=== PATIENT | female | born 1995 | race American Indian/Alaskan Native ===

== ENCOUNTER 2016-04-04 15:53 | Emergency (ER) | payer MEDICAID, OTHER ==
--- NOTE | 2016-04-04 19:26 | Emergency Department Report ---
ED Female HPI - General Chief complaint: Urogenital-Female Stated complaint: VAGINAL DISCOMFORT Time Seen by Provider: 04/04/16 19:25 Source: patient Mode of arrival: Ambulatory Limitations: No Limitations - History of Present Illness Initial comments: 20-year-old female past medical history none presents with complaint of mild foul smelling urine for 3 days, tiny amount of vaginal discharge. Very minor dysuria. Denies any fever chills nausea vomiting no abdominal pain no flank pain. Denies any chest pain no palpitations no shortness of breath. Denies any hematuria. Patient states she just finished her last menstrual period Complaint: dysuria Worsens with: urination Are you Now?: No Last Menstrual Period: 03/30/16 EDC: 01/04/17 Associated Symptoms: dysuria - Related Data Previous Rx's Medication Instructions Recorded Last Taken Type Vit W-Ca,Fe,FA(<1 mg) 1 each PO DAILY #90 tablet 04/11/15 05/22/15 Rx [ Vitamins] Docusate Sodium [Colace] 100 mg PO BID PRN #60 capsule 11/05/15 Unknown Rx Ferrous Sulfate [Feosol 325 MG tab] 325 mg PO TID #120 tablet 11/05/15 Unknown Rx Ibuprofen [Motrin 600 MG tab] 600 mg PO Q6HR PRN #30 tablet 11/05/15 Unknown Rx Nitrofurantoin [place]/M-Cryst 100 mg PO Q12HR #14 capsule 04/04/16 Unknown Rx [Macrobid CAP] metroNIDAZOLE [Flagyl TAB] 500 mg PO Q12HR #14 tab 04/04/16 Unknown Rx Allergies Allergy/AdvReac Type Severity Reaction Status Date / Time No Known Allergies Allergy Verified 04/10/15 18:31 ED Review of Systems ROS: Stated complaint: VAGINAL DISCOMFORT Other details as noted in HPI Constitutional: denies: chills, fever Eyes: denies: eye pain, eye discharge, vision change ENT: denies: ear pain, throat pain Respiratory: denies: cough, shortness of breath, wheezing Cardiovascular: denies: chest pain, palpitations Endocrine: no symptoms reported Gastrointestinal: denies: abdominal pain, nausea, diarrhea Genitourinary: denies: urgency, dysuria, discharge Musculoskeletal: denies: back pain, joint swelling, arthralgia Skin: denies: rash, lesions Neurological: denies: headache, weakness, paresthesias Psychiatric: denies: anxiety, depression Hematological/Lymphatic: denies: easy bleeding, easy bruising ED Past Medical Hx - Past Medical History Previous Medical History?: Yes Hx Hypertension: No Hx Congestive Heart Failure: No Hx Diabetes: No Hx Deep Vein Thrombosis: No Hx Renal Disease: No Hx Sickle Cell Disease: No Hx Seizures: No Hx Psychiatric Treatment: Yes (anxiety) Hx Asthma: No Hx COPD: No Hx HIV: No - Surgical History Past Surgical History?: Yes Additional Surgical History: eye surgery-BILATERAL - Social History Smoking Status: Never Smoker Substance Use Type: None - Medications Home Medications: Home Medications Medication Instructions Recorded Confirmed Last Taken Type Vit W-Ca,Fe,FA(<1 mg) 1 each PO DAILY #90 tablet 04/11/15 11/05/15 Rx [ Vitamins] Docusate Sodium [Colace] 100 mg PO BID PRN #60 capsule 11/05/15 Unknown Rx Ferrous Sulfate [Feosol 325 MG tab] 325 mg PO TID #120 tablet 11/05/15 Unknown Rx Ibuprofen [Motrin 600 MG tab] 600 mg PO Q6HR PRN #30 tablet 11/05/15 Unknown Rx Nitrofurantoin [place]/M-Cryst 100 mg PO Q12HR #14 capsule 04/04/16 Unknown Rx [Macrobid CAP] metroNIDAZOLE [Flagyl TAB] 500 mg PO Q12HR #14 tab 04/04/16 Unknown Rx ED Physical Exam - General Limitations: No Limitations General appearance: alert, in no apparent distress - Head Head exam: Present: atraumatic, normocephalic - Eye Eye exam: Present: normal appearance, PERRL, EOMI - ENT ENT exam: Present: mucous membranes moist - Neck Neck exam: Present: normal inspection - Respiratory Respiratory exam: Present: normal lung sounds bilaterally. Absent: respiratory distress - Cardiovascular Cardiovascular Exam: Present: regular rate, normal rhythm. Absent: systolic murmur, diastolic murmur, rubs, gallop - GI/Abdominal GI/Abdominal exam: Present: soft, normal bowel sounds - Extremities Exam Extremities exam: Present: normal inspection - Back Exam Back exam: Present: normal inspection - Neurological Exam Neurological exam: Present: alert, oriented X3, CN II-XII intact, normal gait - Psychiatric Psychiatric exam: Present: normal affect, normal mood - Skin Skin exam: Present: warm, dry, intact, normal color. Absent: rash ED Course Vital Signs 04/04/16 16:01 Temperature 98.6 F Pulse Rate 105 H Respiratory 18 Rate Blood Pressure 151/79 O2 Sat by Pulse 100 Oximetry ED Medical Decision Making - Medical Decision Making A/P: Dysuria, possible BV 1-Macrobid twice a day 7 days. Patient has no signs of pyelonephritis no flank pain no nausea no vomiting no abdominal pain. Patient is not currently breast-feeding. 2-metronidazole twice a day 7 days to cover empirically for BV, wet prep and GC chlamydia sent. Patient has no clinical signs of PID 3-patient advised to return to the ED if symptoms worsen 4-PRIMARY care doctor follow-up Critical care attestation.: If time is entered above; I have spent that time in minutes in the direct care of this critically ill patient, excluding procedure time. ED Disposition Clinical Impression: Dysuria Disposition: DISCHARGED TO HOME OR SELFCARE Is pt being admited?: No Does the pt Need Aspirin: No Condition: Stable Instructions: Bacterial Vaginosis (ED), Urinary Tract Infection in Women (ED), Dysuria (ED) Prescriptions: metroNIDAZOLE [Flagyl TAB] 500 mg PO Q12HR #14 tab Nitrofurantoin [place]/M-Cryst [Macrobid CAP] 100 mg PO Q12HR #14 capsule Referrals: PRIMARY CAREMD [Primary Care Provider] - 3-5 Days AJIT VEGA MD [Staff Physician] - 3-5 Days [facility] [Provider Group] - 3-5 Days Forms: Work/School Release Form(ED) Time of Disposition: 20:15
[2016-04-04 20:08] LABS: Bacteria,Urine 1+ /HPF (Negative); Bilirubin,Urine NEG (Negative); Blood,Urine NEG (Negative); Ketones,Urine NEG (Negative); Leukocyte Esterase,Urine LG (Negative); Mucus,Urine FEW /HPF; Nitrite,Urine NEG (Negative); Protein,Urine <15 mg/dL mg/dL (Negative); Urobilinogen,Urine < 2.0 mg/dL (<2.0)
[2016-04-04 20:52] VITALS: BP 145/79
== END 2016-04-04 21:07 | disposition home or self-care (01) ==
LOC: ED 15:53
DX: R30.0 Dysuria (principal)
CPT/HCPCS: 81001; 81025; 87086; 87210; 87591; 99282

== ENCOUNTER 2016-04-06 18:50 | Emergency (ER) | payer OTHER ==
[2016-04-06 23:17] VITALS: BP 140/86
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
[2016-04-07] MEDS: TYLENOL #3 PO ONE (01:21)
== END 2016-04-07 01:59 | disposition home or self-care (01) ==
LOC: ED 18:50
DX: M54.2 Cervicalgia (principal); M54.6 Pain in thoracic spine; F41.9 Anxiety disorder, unspecified
CPT/HCPCS: 81025; 99282

== ENCOUNTER 2016-07-12 22:37 | Emergency (ER) | payer OTHER ==
[2016-07-13 00:49] LABS: Basophils % (Auto) 0.2 % (0.0-1.8); Eosinophils % (Auto) 3.5 % (0.0-4.3); Mean Corpuscular HGB Conc 29 % (30-34); Platelet Count 284 K/mm3 (140-440); Red Blood Count 4.49 M/mm3 (3.65-5.03); Red Cell Distribution Width 19.1 % (13.2-15.2); White Blood Count 8.8 K/mm3 (4.5-11.0)
[2016-07-13 00:52] LABS: Hemoglobin 8.7 gm/dl (10.1-14.3)
[2016-07-13 00:53] LABS: Hematocrit 30.4 % (30.3-42.9); Mean Corpuscular Hemoglobin 19 pg (28-32); Mean Corpuscular Volume 68 fl (79-97)
[2016-07-13 01:11] LABS: Alanine Aminotransferase 16 units/L (7-56); Albumin 4.4 g/dL (3.9-5); Albumin/Globulin Ratio 1.3 %; Alkaline Phosphatase 60 units/L (35-129); Anion Gap 19 mmol/L; BUN/Creatinine Ratio 11.25; Blood Urea Nitrogen 9 mg/dL (7-17); Carbon Dioxide 18 mmol/L (22-30); Chloride 105.2 mmol/L (98-107); Glucose 79 mg/dL (65-100); Lipase 58 units/L (13-60); Potassium 4.2 mmol/L (3.6-5.0); Sodium 138 mmol/L (137-145); Total Protein 7.7 g/dL (6.3-8.2)
[2016-07-13 02:16] LABS: Bilirubin,Urine NEG (Negative); Blood,Urine LG (Negative); Ketones,Urine NEG (Negative); Leukocyte Esterase,Urine NEG (Negative); Mucus,Urine 3+ /HPF; Nitrite,Urine NEG (Negative); Urobilinogen,Urine < 2.0 mg/dL (<2.0)
[2016-07-13 02:23] LABS: RBC,Urine > 182.0 /HPF (0.0-6.0)
[2016-07-13] MEDS ORDERED: ZOFRAN ODT PO ONE (10:49)
--- NOTE | 2016-07-13 10:57 | Emergency Department Report ---
ED Abdominal Pain HPI - General Chief Complaint: Abdominal Pain Stated Complaint: EMESIS/ABD PAIN Time Seen by Provider: 07/13/16 10:33 Source: patient, RN notes reviewed, old records reviewed Mode of arrival: Ambulatory Limitations: No Limitations - History of Present Illness Initial Comments: 20-year-old female presents to the emergency department complaining of upper abdominal pain. Patient describes feeling bloated. Symptoms have been present for the past 3 days. She denies radiation of pain. She reports nausea and vomiting with associated diarrhea. She denies seeing any blood. She also denies vaginal discharge. There has been no fever. She is currently on her menstrual cycle. There are no other complaints. MD Complaint: abdominal pain -: Gradual, days(s) (3) Location: epigastric Radiation: none Migration to: no migration Severity: moderate Severity scale (0 -10): 7 Quality: fullness (bloated) Consistency: constant Improves With: nothing Worsens With: nothing Associated Symptoms: nausea, vomiting, diarrhea - Related Data Previous Rx's Medication Instructions Recorded Last Taken Type Ferrous Sulfate [Feosol 325 MG tab] 325 mg PO TID #120 tablet 11/05/15 Unknown Rx Famotidine [Pepcid] 20 mg PO BID #30 tablet 07/13/16 Unknown Rx Promethazine [Phenergan TAB] 25 mg PO Q6HR PRN #20 tab 07/13/16 Unknown Rx Allergies Allergy/AdvReac Type Severity Reaction Status Date / Time No Known Allergies Allergy Verified 04/10/15 18:31 ED Review of Systems ROS: Stated complaint: EMESIS/ABD PAIN Other details as noted in HPI Comment: All other systems reviewed and negative Gastrointestinal: abdominal pain, nausea, vomiting, diarrhea ED Past Medical Hx - Past Medical History Previous Medical History?: Yes Hx Hypertension: No Hx Congestive Heart Failure: No Hx Diabetes: No Hx Deep Vein Thrombosis: No Hx Renal Disease: No Hx Sickle Cell Disease: No Hx Seizures: No Hx Psychiatric Treatment: Yes (anxiety) Hx Asthma: No Hx COPD: No Hx HIV: No - Surgical History Past Surgical History?: Yes Additional Surgical History: eye surgery-BILATERAL - Family History Family history: no significant - Social History Smoking Status: Current Every Day Smoker Substance Use Type: Alcohol - Medications Home Medications: Home Medications Medication Instructions Recorded Confirmed Last Taken Type Ferrous Sulfate [Feosol 325 MG tab] 325 mg PO TID #120 tablet 11/05/15 Unknown Rx Famotidine [Pepcid] 20 mg PO BID #30 tablet 07/13/16 Unknown Rx Promethazine [Phenergan TAB] 25 mg PO Q6HR PRN #20 tab 07/13/16 Unknown Rx ED Physical Exam - General Limitations: No Limitations General appearance: alert, in no apparent distress - Head Head exam: Present: atraumatic, normocephalic - Eye Eye exam: Present: normal appearance, PERRL, EOMI - ENT ENT exam: Present: normal exam, normal orophraynx, mucous membranes moist - Neck Neck exam: Present: normal inspection, full ROM. Absent: tenderness - Respiratory Respiratory exam: Present: normal lung sounds bilaterally. Absent: respiratory distress - Cardiovascular Cardiovascular Exam: Present: regular rate, normal rhythm, normal heart sounds - GI/Abdominal GI/Abdominal exam: Present: soft, tenderness (mild epigastric tenderness to palpation), normal bowel sounds. Absent: distended, guarding, rebound - Extremities Exam Extremities exam: Present: normal inspection, full ROM. Absent: tenderness - Back Exam Back exam: Present: normal inspection, full ROM. Absent: tenderness - Neurological Exam Neurological exam: Present: alert, oriented X3. Absent: motor sensory deficit - Skin Skin exam: Present: warm, dry, intact ED Course Vital Signs 07/13/16 07/13/16 07/13/16 00:32 02:49 08:13 Temperature 98.7 F 98.6 F 98.3 F Pulse Rate 98 H 81 72 Respiratory 18 18 18 Rate Blood Pressure 131/83 133/85 116/77 Blood Pressure [Left] O2 Sat by Pulse 98 100 100 Oximetry 07/13/16 07/13/16 07/13/16 08:36 08:50 09:00 Temperature 98.2 F Pulse Rate 77 Respiratory 16 16 Rate Blood Pressure 99/60 Blood Pressure 96/61 [Left] O2 Sat by Pulse 100 99 100 Oximetry 07/13/16 07/13/16 07/13/16 09:10 09:20 09:30 Temperature Pulse Rate Respiratory Rate Blood Pressure 99/60 99/60 99/60 Blood Pressure [Left] O2 Sat by Pulse 99 100 100 Oximetry 07/13/16 09:40 Temperature Pulse Rate Respiratory Rate Blood Pressure 99/60 Blood Pressure [Left] O2 Sat by Pulse 100 Oximetry ED Medical Decision Making - Lab Data Result diagrams: 07/13/16 00:40 07/13/16 00:40 - Medical Decision Making Lab results reviewed and discussed with the patient. Patient will be discharged home to follow up with her primary care physician. - Differential Diagnosis gastroenteritis, PUD, gastritis, pancreatitis Critical care attestation.: If time is entered above; I have spent that time in minutes in the direct care of this critically ill patient, excluding procedure time. ED Disposition Clinical Impression: Gastroenteritis Disposition: DISCHARGED TO HOME OR SELFCARE Is pt being admited?: No Condition: Stable Instructions: Abdominal Pain (ED) Prescriptions: Famotidine [Pepcid] 20 mg PO BID #30 tablet Promethazine [Phenergan TAB] 25 mg PO Q6HR PRN #20 tab PRN Reason: Nausea Referrals: PRIMARY CARE, [Primary Care Provider] - 3-5 Days Time of Disposition: 10:58
[2016-07-13 11:29] VITALS: BP 106/59
== END 2016-07-13 11:30 | disposition home or self-care (01) ==
LOC: ED 22:37
DX: K52.9 Noninfective gastroenteritis and colitis, unspecified (principal); F41.9 Anxiety disorder, unspecified; F17.200 Nicotine dependence, unspecified, uncomplicated
CPT/HCPCS: 36415; 80053; 81001; 81025; 83690; 85025; 99283

== ENCOUNTER 2017-10-19 20:20 | Emergency (ER) | payer SELFPAY ==
[2017-10-19 20:39] VITALS: BP 113/65
[2017-10-19 21:26] LABS: Bacteria,Urine 1+ /HPF (Negative); Bilirubin,Urine NEG (Negative); Blood,Urine NEG (Negative); Color,Urine Straw (Yellow); Protein,Urine <15 mg/dL mg/dL (Negative); Urobilinogen,Urine < 2.0 mg/dL (<2.0)
[2017-10-19 21:27] LABS: HCG Qualitative,Urine Negative (Negative)
[2017-10-19] MEDS ORDERED: ZOFRAN ODT PO ONE (22:22)
[2017-10-19 22:24] LABS: Basophils # (Auto) 0.1 K/mm3 (0.0-0.1); Basophils % (Auto) 1.3 % (0.0-1.8); Eosinophils # (Auto) 0.1 K/mm3 (0.0-0.4); Eosinophils % (Auto) 1.7 % (0.0-4.3); Hematocrit 29.7 % (30.3-42.9); Hemoglobin 8.6 gm/dl (10.1-14.3); Lymphocytes # (Auto) 1.8 K/mm3 (1.2-5.4); Lymphocytes % (Auto) 25.4 % (13.4-35.0); Mean Corpuscular HGB Conc 29 % (30-34); Mean Corpuscular Hemoglobin 20 pg (28-32); Mean Corpuscular Volume 71 fl (79-97); Monocytes # (Auto) 0.8 K/mm3 (0.0-0.8); Monocytes % (Auto) 11.7 % (0.0-7.3); Platelet Count 444 K/mm3 (140-440); Red Cell Distribution Width 18.8 % (13.2-15.2)
[2017-10-19 22:45] LABS: Alanine Aminotransferase 23 units/L (7-56); Albumin 4.4 g/dL (3.9-5); BUN/Creatinine Ratio 7; Blood Urea Nitrogen 6 mg/dL (7-17); Calcium 9.3 mg/dL (8.4-10.2); Hemolysis Index 2; Lipase 73 units/L (13-60)
--- NOTE | 2017-10-19 23:40 | Emergency Department Report ---
ED General Adult HPI - General Chief complaint: Nausea/Vomiting/Diarrhea Stated complaint: NAUSEA AND VOMITING Time Seen by Provider: 10/19/17 21:41 Source: patient Mode of arrival: Ambulatory Limitations: No Limitations - History of Present Illness Initial comments: 22-year-old -[place] female presents to the emergency room for vomiting and pressure to her lower abdomen onset today. Patient also admits to whitish vaginal discharge onset 2 days ago. Patient reports that she vomited approximately 10 times today. Last vomit one hour prior to me seeing her. She denies any nausea at this time. She reports any time she eats or drinks something she vomits. Patient also reports pelvic pressure denies any dysuria denies any vaginal bleeding and missed his vaginal discharge. Patient is sexually active one partner in the last 6 months this unprotected. 2 para 3. Her last menstrual period was 10/05/2017 which is normal to her. She denies any dysuria. Patient reports a past medical history of eye surgery. Currently takes no medications on a daily basis and has no known drug allergies. Location: pelvis Quality: other (pressure) Improves with: none Associated Symptoms: nausea/vomiting Treatments Prior to Arrival: none - Related Data Previous Rx's Medication Instructions Recorded Last Taken Type Ferrous Sulfate [Feosol 325 MG tab] 325 mg PO TID #120 tablet 11/05/15 Unknown Rx Famotidine [Pepcid] 20 mg PO BID #30 tablet 07/13/16 Unknown Rx Promethazine [Phenergan TAB] 25 mg PO Q6HR PRN #10 tab 10/20/17 Unknown Rx Allergies Allergy/AdvReac Type Severity Reaction Status Date / Time No Known Allergies Allergy Verified 04/10/15 18:31 ED Review of Systems ROS: Stated complaint: NAUSEA AND VOMITING Other details as noted in HPI Gastrointestinal: abdominal pain, vomiting Genitourinary: other (pelvic pressure) ED Past Medical Hx - Past Medical History Hx Hypertension: No Hx Congestive Heart Failure: No Hx Diabetes: No Hx Deep Vein Thrombosis: No Hx Renal Disease: No Hx Sickle Cell Disease: No Hx Seizures: No Hx Psychiatric Treatment: Yes (anxiety) Hx Asthma: No Hx COPD: No Hx HIV: No - Surgical History Additional Surgical History: eye surgery-BILATERAL - Social History Smoking Status: Never Smoker Substance Use Type: Alcohol, Marijuana - Medications Home Medications: Home Medications Medication Instructions Recorded Confirmed Last Taken Type Ferrous Sulfate [Feosol 325 MG tab] 325 mg PO TID #120 tablet 11/05/15 Unknown Rx Famotidine [Pepcid] 20 mg PO BID #30 tablet 07/13/16 Unknown Rx Promethazine [Phenergan TAB] 25 mg PO Q6HR PRN #10 tab 10/20/17 Unknown Rx ED Physical Exam - General Limitations: No Limitations General appearance: alert, in no apparent distress - Head Head exam: Present: atraumatic, normocephalic - Eye Eye exam: Present: EOMI - ENT ENT exam: Present: mucous membranes moist - Neck Neck exam: Present: full ROM. Absent: lymphadenopathy - Respiratory Respiratory exam: Present: normal lung sounds bilaterally. Absent: respiratory distress - Cardiovascular Cardiovascular Exam: Present: regular rate, normal rhythm. Absent: systolic murmur, diastolic murmur, rubs, gallop - GI/Abdominal GI/Abdominal exam: Present: soft, other (pelvic pressure with palpation). Absent: distended, tenderness - External exam: Present: normal external exam Speculum exam: Present: normal speculum exam Bi-manual exam: Present: normal bi-manual exam. Absent: cervical motion tendernes, adnexal tenderness, uterine enlargement, uterine tenderness - Extremities Exam Extremities exam: Present: full ROM - Neurological Exam Neurological exam: Present: alert, oriented X3 - Psychiatric Psychiatric exam: Present: normal affect, normal mood - Skin Skin exam: Present: warm, dry, intact, normal color. Absent: rash ED Course Vital Signs 10/19/17 10/19/17 20:32 20:33 Temperature 99.3 F 99.3 F Pulse Rate 75 78 Respiratory 12 12 Rate Blood Pressure 113/65 113/65 O2 Sat by Pulse 99 99 Oximetry ED Medical Decision Making - Lab Data Result diagrams: 10/19/17 22:06 10/19/17 22:06 - Medical Decision Making Patient has been evaluated by this provider fast track. Zofran 8 mg ODT for vomiting. By mouth trial challenge CBC CMP, wet prep and urinalysis GC chlamydia, hCG urine Wet prep came back Will discharge patient on Phenergan for nausea and vomiting Discussed with patient increase her fluid intake and advance her diet as tolerated. If symptoms persist or gets worse to follow up with [facility]. Critical care attestation.: If time is entered above; I have spent that time in minutes in the direct care of this critically ill patient, excluding procedure time. ED Disposition Clinical Impression: Nausea & vomiting Qualifiers: Vomiting type: unspecified Vomiting Intractability: intractable Qualified Code( s): R11.2 - Nausea with vomiting, unspecified Disposition: DC-01 TO HOME OR SELFCARE Is pt being admited?: No Does the pt Need Aspirin: No Condition: Stable Instructions: Gastritis (ED) Additional Instructions: Please take anti-nausea and vomiting medication. Please increase fluid intake and advance diet as tolerated. If her symptoms persist or gets worse please follow-up with [facility]. Prescriptions: Promethazine [Phenergan TAB] 25 mg PO Q6HR PRN #10 tab PRN Reason: Nausea Referrals: PRIMARY CARE, [Primary Care Provider] - 3-5 Days [facility] [Provider Group] - 3-5 Days Forms: Work/School Release Form(ED)
== END 2017-10-20 01:30 | disposition home or self-care (01) ==
LOC: ED 20:20
DX: R11.2 Nausea with vomiting, unspecified (principal); F41.9 Anxiety disorder, unspecified; Z79.899 Other long term (current) drug therapy
CPT/HCPCS: 36415; 80053; 81001; 81025; 83690; 85025; 87210; 87591; 99284; Q0162

== ENCOUNTER 2020-01-08 21:03 | Emergency (ER) | payer SELFPAY ==
[2020-01-09 00:08] LABS: Basophils % (Auto) 0.4 % (0.0-1.8); Eosinophils # (Auto) 0.1 K/mm3 (0.0-0.4); Eosinophils % (Auto) 1.5 % (0.0-4.3); Hematocrit 31.8 % (30.3-42.9); Hemoglobin 10.5 gm/dl (10.1-14.3); Lymphocytes # (Auto) 2.2 K/mm3 (1.2-5.4); Lymphocytes % (Auto) 28.1 % (13.4-35.0); Mean Corpuscular HGB Conc 33 % (30-34); Mean Corpuscular Volume 81 fl (79-97); Monocytes # (Auto) 0.7 K/mm3 (0.0-0.8); Monocytes % (Auto) 8.8 % (0.0-7.3); Platelet Count 298 K/mm3 (140-440); Red Blood Count 3.93 M/mm3 (3.65-5.03); Red Cell Distribution Width 18.7 % (13.2-15.2)
[2020-01-09 00:36] VITALS: BP 113/75
[2020-01-09 02:54] LABS: Bacteria,Urine 1+ /HPF (Negative); Bilirubin,Urine NEG (Negative); Blood,Urine NEG (Negative); Color,Urine Yellow (Yellow); Hyaline Casts,Urine 1 /LPF; Mucus,Urine 3+ /HPF; Protein,Urine <15 mg/dL mg/dL (Negative)
[2020-01-09] MEDS ORDERED: ACETAMINOPHEN 500 MG TAB PO ONE (04:55)
--- NOTE | 2020-01-09 05:12 | Ultrasound Report ---
ULTRASOUND OBSTETRIC INDICATION / CLINICAL INFORMATION: Vaginal bleeding - 16 weeks gestation. Clinical Gestational Age (GA) in weeks, days: 15 weeks 5 days TECHNIQUE: Transabdominal. COMPARISON: None available. FINDINGS: There is a single intrauterine . Biparietal Diameter = 3.2 cm = 15 weeks, 6 days Head Circumference = 11.6 cm = 15 weeks, 5 days Abdominal Circumference = 10.2 cm = 16 weeks, 1 days Femur Length = 1.7 cm = 15 weeks, 1 days Average Ultrasound Age (AUA) = 15 weeks, 5 days Heart Rate: 158 beats per minute. Estimated Weight in grams (if calculated): Estimated Weight Growth Percentile (if calculated): Position: cephalic. Cervix: closed. Length in cm (if measured): 5.5 Placenta: posterior and low lying Amniotic Fluid Volume: normal Amniotic Fluid Index (MICHA) in cm (if calculated): Not measured. Maternal Adnexa: Left ovarian cyst measuring 3.7 x 3.3 x 2.8 cm. IMPRESSION: 1. Single, living intrauterine with estimated sonographic age of 15 weeks, 5 days. 2. No significant sonographic abnormality. 3. Left ovarian cyst, 3.7 cm. Signer Name: Charlene Mejia MD Signed: 01/09/2020 5:07 AM Workstation Name: [email or web address]
--- NOTE | 2020-01-09 06:21 | Emergency Department Report ---
ED Female HPI - General Chief complaint: Vaginal Bleeding Stated complaint: 16 WKS PREG, BAD CRAMPS/DISCHARGE Source: patient Mode of arrival: Ambulatory Limitations: No Limitations - History of Present Illness Initial comments: Patient is a A0 24-year-old -[place] female who is approximately 16 weeks gestation who presents to the ED with complaint of acute onset persistent suprapubic pressure and pain, vaginal discharge with thick malodorous yellowish color and and vaginal bleeding for the last 2 days. Patient states that the bleeding has since resolved but the vaginal discharge is persistent with suprapubic pressure and pain. Patient denies fever, chills, dysuria, urinary frequency and urgency, dizziness, syncope, diarrhea, cough, chest pain, sore thr oat, headache, nausea and vomiting. MD Complaint: vaginal bleeding, vaginal discharge, pelvic pain -: Sudden, days(s) (2) Location: suprapubic, other (vaginal) Radiation: non-radiating Severity: moderate Severity scale (0 -10): 5 Quality: cramping, sharp Consistency: constant Improves with: none Worsens with: none Are you Now?: Yes (16 weeks gestation) Associated Symptoms: denies other symptoms, vaginal discharge, vaginal bleeding, abdominal pain. denies: nausea/vomiting, fever/chills, headaches, loss of appetite, dysuria, hematuria, rash, syncope, weakness, other - Related Data Sexually active: Yes : 3 Para: 3 A: 0 Previous Rx's Medication Instructions Recorded Last Taken Type Ferrous Sulfate [Feosol 325 MG tab] 325 mg PO TID #120 tablet 11/05/15 Unknown Rx Famotidine [Pepcid] 20 mg PO BID #30 tablet 07/13/16 Unknown Rx Promethazine [Phenergan] 25 mg PO Q6HR PRN #10 tab 10/20/17 Unknown Rx Acetaminophen [Tylenol] 500 mg PO Q6HR PRN #30 tablet 01/09/20 Unknown Rx metroNIDAZOLE [Flagyl] 500 mg PO Q12HR #14 tab 01/09/20 Unknown Rx Allergies Allergy/AdvReac Type Severity Reaction Status Date / Time No Known Allergies Allergy Verified 04/10/15 18:31 ED Review of Systems ROS: Stated complaint: 16 WKS PREG, BAD CRAMPS/DISCHARGE Other details as noted in HPI Constitutional: denies: chills, fever Eyes: denies: eye pain, eye discharge, vision change ENT: denies: ear pain, throat pain Respiratory: denies: cough, shortness of breath, wheezing Cardiovascular: denies: chest pain, palpitations Endocrine: no symptoms reported Gastrointestinal: abdominal pain (Suprapubic pressure and pain). denies: nausea, diarrhea Genitourinary: hematuria, discharge, abnormal menses (Vaginal bleeding). denies: urgency, dysuria, frequency Musculoskeletal: denies: back pain, joint swelling, arthralgia Skin: denies: rash, lesions Neurological: denies: headache, weakness, paresthesias Psychiatric: denies: anxiety, depression Hematological/Lymphatic: denies: easy bleeding, easy bruising ED Past Medical Hx - Past Medical History Hx Hypertension: No Hx Congestive Heart Failure: No Hx Diabetes: No Hx Deep Vein Thrombosis: No Hx Renal Disease: No Hx Sickle Cell Disease: No Hx Seizures: No Hx Psychiatric Treatment: Yes (anxiety) Hx Asthma: No Hx COPD: No Hx HIV: No - Surgical History Additional Surgical History: eye surgery-BILATERAL - Social History Smoking Status: Never Smoker Substance Use Type: None - Medications Home Medications: Home Medications Medication Instructions Recorded Confirmed Last Taken Type Ferrous Sulfate [Feosol 325 MG tab] 325 mg PO TID #120 tablet 11/05/15 Unknown Rx Famotidine [Pepcid] 20 mg PO BID #30 tablet 07/13/16 Unknown Rx Promethazine [Phenergan] 25 mg PO Q6HR PRN #10 tab 10/20/17 Unknown Rx Acetaminophen [Tylenol] 500 mg PO Q6HR PRN #30 tablet 01/09/20 Unknown Rx metroNIDAZOLE [Flagyl] 500 mg PO Q12HR #14 tab 01/09/20 Unknown Rx ED Physical Exam - General Limitations: No Limitations General appearance: alert, in no apparent distress - Head Head exam: Present: atraumatic, normocephalic, normal inspection - Eye Eye exam: Present: normal appearance, PERRL, EOMI Pupils: Present: normal accommodation - ENT ENT exam: Present: normal exam, normal orophraynx, mucous membranes moist, TM's normal bilaterally, normal external ear exam - Neck Neck exam: Present: normal inspection, full ROM. Absent: tenderness - Respiratory Respiratory exam: Present: normal lung sounds bilaterally. Absent: respiratory distress, wheezes, chest wall tenderness, accessory muscle use, decreased breath sounds - Cardiovascular Cardiovascular Exam: Present: regular rate, normal rhythm, normal heart sounds. Absent: systolic murmur, diastolic murmur, rubs, gallop - GI/Abdominal GI/Abdominal exam: Present: soft, normal bowel sounds. Absent: tenderness, guarding, rebound, hyperactive bowel sounds, hypoactive bowel sounds - Bi-manual exam: Present: other (Pelvic exam deferred, patient preferred self swab) - Extremities Exam Extremities exam: Present: normal inspection, full ROM, normal capillary refill - Back Exam Back exam: Present: normal inspection, full ROM. Absent: tenderness, CVA tenderness (R), CVA tenderness (L), muscle spasm - Neurological Exam Neurological exam: Present: alert, oriented X3, CN II-XII intact, normal gait, reflexes normal - Psychiatric Psychiatric exam: Present: normal affect, normal mood - Skin Skin exam: Present: warm, dry, intact, normal color. Absent: rash ED Course Vital Signs 01/08/20 23:08 Temperature 98.5 F Pulse Rate 83 Respiratory 18 Rate Blood Pressure 113/75 O2 Sat by Pulse 99 Oximetry ED Medical Decision Making - Lab Data Result diagrams: 01/08/20 23:21 - Radiology Data Radiology results: report reviewed, image reviewed Findings [facility] [address] [place] [address] Ultrasound Report Signed Patient: ZOE MALONE MR#: [id number] : 1995 Acct:[id number] Age/Sex: 24 / F ADM Date: 01/08/20 Loc: ED Attending Dr: Ordering Physician: BRANNON ZHU Date of Service: 01/09/20 Procedure(s): US OB >= 14 weeks Fetus Accession Number(s): [id number] cc: BRANNON ZHU ULTRASOUND OBSTETRIC INDICATION / CLINICAL INFORMATION: Vaginal bleeding - 16 weeks gestation. Clinical Gestational Age (GA) in weeks, days: 15 weeks 5 days TECHNIQUE: Transabdominal. COMPARISON: None available. FINDINGS: There is a single intrauterine . Biparietal Diameter = 3.2 cm = 15 weeks, 6 days Head Circumference = 11.6 cm = 15 weeks, 5 days Abdominal Circumference = 10.2 cm = 16 weeks, 1 days Femur Length = 1.7 cm = 15 weeks, 1 days Average Ultrasound Age (AUA) = 15 weeks, 5 days Heart Rate: 158 beats per minute. Estimated Weight in grams (if calculated): Estimated Weight Growth Percentile (if calculated): Position: cephalic. Cervix: closed. Length in cm (if measured): 5.5 Placenta: posterior and low lying Amniotic Fluid Volume: normal Amniotic Fluid Index (MICHA) in cm (if calculated): Not measured. Maternal Adnexa: Left ovarian cyst measuring 3.7 x 3.3 x 2.8 cm. IMPRESSION: 1. Single, living intrauterine with estimated sonographic age of 15 weeks, 5 days. 2. No significant sonographic abnormality. 3. Left ovarian cyst, 3.7 cm. Signer Name: Charlene Mejia MD Signed: 01/09/2020 5:07 AM Workstation Name: [id number] Transcribed By: Dictated By: Charlene Mejia MD Electronically Authenticated By: Charlene Mejia MD Signed Date/Time: 01/09/20506 DD/ 2 TD/TT: - Medical Decision Making This is a A0 24-year-old -[place] female who is approximately 16 weeks gestation who presents to the ED with complaint of acute onset persistent suprapubic pressure and pain, vaginal discharge with thick malodorous yellowish color and and vaginal bleeding for the last 2 days. Patient states that the bleeding has since resolved but the vaginal discharge is persistent with suprapubic pressure and pain. In the ED, patient is alert and oriented x3 and is not in distress. Lab test results [place] [id number]. The wet prep was positive for Gardnerella vaginalis. The rest of the lab test results were nonactionable. Patient was treated in the ED for pain. ultrasound showed a single, living intrauterine with estimated sonographic age of 15 weeks, 5 days, and heart rate of 158 bpm. It also showed left ovarian cyst measuring 3.7 cm and no other significant sonographic abnormalities. Patient with discharge home on antibiotic Flagyl for bacterial vaginosis and advised to take Tylenol as needed for pain. Patient was advised to follow-up with INFUSION NURSE physician in 3 to 5 days for reevaluation or return to the ED immediately if symptoms get worse. - Differential Diagnosis Threatened miscarriage; ovarian cyst; bacterial vaginosis; UTI; Critical care attestation.: If time is entered above; I have spent that time in minutes in the direct care of this critically ill patient, excluding procedure time. ED Disposition Clinical Impression: Left ovarian cyst, Threatened miscarriage, Abdominal pain during in second trimester, Bacterial vaginosis Disposition: TO HOME OR SELFCARE Is pt being admited?: No Does the pt Need Aspirin: No Condition: Stable Instructions: Bacterial Vaginosis (ED), Threatened Miscarriage, [id number], Abdominal Pain During , [id number], Bacterial Vaginosis, Ovarian Cyst, [id number] Additional Instructions: Lab test results were reviewed and are all nonactionable except for wet prep that was positive for Gardnerella vaginalis consistent with bacterial vaginosis. Transvaginal ultrasound showed a single intrauterine of approximately 15 weeks and 5 days and with a heart rate of 158 bpm. Therefore maintain a complete pelvic rest and follow-up with the INFUSION NURSE physician in 3 to 5 days for reevaluation. Take Tylenol only as needed for pain and antibiotics for bacterial vaginosis. Return to the ED immediately if symptoms get worse. Prescriptions: Acetaminophen [Tylenol] 500 mg PO Q6HR PRN #30 tablet PRN Reason: Pain , Severe (7-10) metroNIDAZOLE [Flagyl] 500 mg PO Q12HR #14 tab Referrals: GLENYS FROST MD [Staff Physician] - 3-5 Days Forms: STI Treatment and Prevention, Work/School Release Form(ED) Time of Disposition: 06:28 Print Language: MALTESE
== END 2020-01-09 06:40 | disposition home or self-care (01) ==
LOC: ED 21:03
DX: O20.0 Threatened abortion (principal); O23.592 Infection of other part of genital tract in pregnancy, second trimester; N76.0 Acute vaginitis; Z3A.16 16 weeks gestation of pregnancy
CPT/HCPCS: 36415; 76805; 81001; 84702; 84703; 85025; 86900; 86901; 87210

== ENCOUNTER 2021-08-21 17:06 | Outpatient (CLI) | payer MEDICAID ==
[2021-08-21] MEDS ORDERED: LACTATED RINGERS 1,000 ML ONE (21:01)
[2021-08-21] MEDS ORDERED: ACETAMINOPHEN 325 MG TAB PO PRN (21:10)
[2021-08-21] MEDS ORDERED: DOCUSATE SODIUM 100 MG CAP PO PRN (21:10)
--- NOTE | 2021-08-21 21:17 | Ultrasound Report ---
LIMITED OBSTETRICAL ULTRASOUND INDICATION: Term , amniotic fluid evaluation COMPARISON: None recent FINDINGS: Term intrauterine is noted with fetus in a cephalic position. Cardiac activity wa s documented with heart rate of 141 bpm. Anterior placenta is free of the internal cervical os. Amniotic fluid volume appears decreased with MICHA decreased at 3.2 cm. BIOPHYSICAL PROFILE breathing movements: 2/2 movements: 2/2 posture and tone tone: 2/2 Qualitative amniotic fluid volume: 2/2 Total score: 8/8, within normal limits Signer Name: Juan Marinelli MD Signed: 08/21/2021 9:12 PM Workstation Name: [id number]
[2021-08-21] MEDS: LACTATED RINGERS 1,000 ML IV SCH (21:40)
[2021-08-22 05:57] VITALS: BP 99/50
[2021-08-22] MEDS: LACTATED RINGERS 1,000 ML IV SCH (06:29)
--- NOTE | 2021-08-22 09:18 | Ultrasound Report ---
LIMITED OBSTETRICAL ULTRASOUND INDICATION: Fluid evaluation, 37 week 1 day COMPARISON: 08/21/2021 FINDINGS: Term intrauterine again seen in cephalic position. Anterior placenta is free of t he internal cervical os. heart rate was documented at 146 bpm. MICHA was measured at 8.1 cm which is just within the lower end of the normal range and more than the 3.2 cm calculated on yesterday's examination. Signer Name: Juan Marinelli MD Signed: 08/22/2021 9:13 AM Workstation Name: [id number]
[2021-08-22] MEDS ORDERED: PRENATAL VIT27-FE FUMARATE-FOLIC ACID VIT TAB PO SCH (10:00)
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
== END 2021-08-22 08:30 | disposition home or self-care (01) ==
LOC: TRG 17:06 → APU 17:08 → LD 22:21 → TRG 08-22 08:30
PROVIDERS: ATTEND Obstetrics & Gynecology
DX: O42.913 Preterm premature rupture of membranes, unspecified as to length of time between rupture and onset of labor, third trimester (principal); O26.893 Other specified pregnancy related conditions, third trimester; V89.2XXA Person injured in unspecified motor-vehicle accident, traffic, initial encounter; O99.213 Obesity complicating pregnancy, third trimester; E66.01 Morbid (severe) obesity due to excess calories; O99.013 Anemia complicating pregnancy, third trimester; D64.9 Anemia, unspecified; Z3A.37 37 weeks gestation of pregnancy; Y93.89 Activity, other specified; Y92.89 Other specified places as the place of occurrence of the external cause; Y99.8 Other external cause status
CPT/HCPCS: 36415; 59025; 76815; 76819; 84112; 86850; 86900; 86901; 96360; 96361; J7120

== ENCOUNTER 2021-10-23 02:14 | Emergency (ER) | payer MEDICAID ==
[2021-10-23 02:22] VITALS: BP 123/77
[2021-10-23 03:27] LABS: Basophils % (Auto) 0.6 % (0.0-1.8); Eosinophils # (Auto) 0.1 K/mm3 (0.0-0.4); Eosinophils % (Auto) 2.5 % (0.0-4.3); Hematocrit 31.8 % (30.3-42.9); Hemoglobin 10.5 gm/dl (10.1-14.3); Lymphocytes # (Auto) 2.3 K/mm3 (1.2-5.4); Lymphocytes % (Auto) 45.4 % (13.4-35.0); Mean Corpuscular HGB Conc 33 % (30-34); Mean Corpuscular Volume 84 fl (79-97); Monocytes # (Auto) 0.6 K/mm3 (0.0-0.8); Monocytes % (Auto) 12.5 % (0.0-7.3); Platelet Count 265 K/mm3 (140-440); Red Cell Distribution Width 17.7 % (13.2-15.2)
[2021-10-23 03:40] LABS: Alanine Aminotransferase 32 units/L (7-56); Albumin 4.4 g/dL (3.9-5); BUN/Creatinine Ratio 6; Blood Urea Nitrogen 5 mg/dL (7-17); Hemolysis Index 1
== END 2021-10-23 13:47 | disposition left against medical advice (07) ==
LOC: ED 02:14
DX: Z00.00 Encounter for general adult medical examination without abnormal findings (principal); Z53.21 Procedure and treatment not carried out due to patient leaving prior to being seen by health care provider
CPT/HCPCS: 36415; 80053; 85025